=== PATIENT | male | born 1970 | race Two or more races ===

== ENCOUNTER 2017-02-02 10:43 | Emergency (ER) | payer OTHER ==
--- NOTE | 2017-02-02 11:03 | CPEKG ---
Heart Rate: 55 RR Interval: 1091 P-R Interval: 208 QRSD Interval: 88 QT Interval: 444 QTC Interval: 425 P Palmetto: 54 QRS Palmetto: 60 T Wave [place]metto: 56 EKG Severity - NORMAL ECG - EKG Impression: SINUS RHYTHM Electronically Signed By: Man Harrington 02-Feb-2017 13:55:08
[2017-02-02 11:21] LABS: % IMMATURE GRANULYOCYTES 0.2 % (0.0-1.1); ABSOLUTE IMMATURE GRANULOCYTES 0.01 10^3/uL (0.00-0.10); ADD DIFF? NO; ADD MORPH? NO; ADD SCAN? NO; ATYPICAL LYMPHOCYTE FLAG 10 (0-99); FRAGMENT RBC FLAG 0 (0-99); HEMATOCRIT 47.2 % (40.0-51.0); HEMOGLOBIN 16.3 g/dL (13.7-17.5); LEFT SHIFT FLG 0 (0-99); LIPEMIA HEMOLYSIS FLAG 90 (0-99); MEAN CELL HEMOGLOBIN 31.7 pg (27.9-34.1); MEAN CELL HEMOGLOBIN CONCENTR. 34.5 g/dL (32.4-36.7); MEAN CELL VOLUME 91.7 fL (81.5-99.8); MEAN PLATELET VOLUME 10.1 fL (8.7-11.7); PLATELET CLUMPS FLAG 10 (0-99); PLATELET COUNT 259 10^3/uL (150-400); RED BLOOD CELL COUNT 5.15 10^6/uL (4.40-6.38); RED CELL DISTRIBUTION WIDTH 12.3 % (11.5-15.2)
--- NOTE | 2017-02-02 11:33 | EDPHY ---
H & P Stated Complaint: Central Chest pain, tighness since early am, lightheaded. HPI/ROS: CHIEF COMPLAINT: Chest Pain HISTORY OF PRESENT ILLNESS: Patient awoke with some chest pain approximately 1: 30 a.m. this morning. Retrosternal chest pain that is described as mild to moderate pressure. Does not radiate. No nausea, vomiting or diaphoresis. No exertional pain. Minimally improved at this time. He does report recent cough and upper respiratory type infection over the past 2 weeks. His spouse had the similar. He has got no fever at this time. No shortness of breath. No recent travel or surgery. No previous venous thrombolic event and no current risk factors at this time. No hypertension, diabetes, coronary artery disease or reports of dyslipidemia. No other associated complaints or modifying factors. FAMILY HISTORY CARDIAC: Denies PRIOR CARDIAC WORKUP: None REVIEW OF SYSTEMS: Ten systems reviewed and are negative unless otherwise noted in the HPI EXAMINATION: General Appearance: Alert, no distress Head: normocephalic, atraumatic Eyes: Pupils equal and round, no conjunctival pallor or injection ENT, Mouth: Mucous membranes moist Neck: Normal inspection, supple, non-tender Respiratory: Lungs are clear to auscultation. No wheezing, rhonchi or crackles. Cardiovascular: Regular rate and rhythm. No murmur. Pulses intact distally Gastrointestinal: Abdomen is soft and nontender Back: non-tender, no bony abnormalities Neurological: A&O, nonfocal, normal gait Skin: Warm and dry, no rash Extremities: Nontender, no pedal edema. No evidence of DVT. Psychiatric: Mood and affect normal DIFFERENTIAL DIAGNOSES: Including but not limited to in no particular order: Acute Chest Pain, ACS, Stable Angina, Pneumonia, PE, duodenitis, gastritis, esophagitis, GERD MDM: 11:30 a.m. Chest pain that started approximately 1:30 a.m. this morning. It has been constant. [id number] pain. No worse with exertion. This is preceded by upper respiratory and lower respiratory infections over the past 2 weeks. Vital signs stable. EKG is unremarkable. Labs and chest x-ray are pending. 12:15 p.m. Chest x-ray, EKG, laboratory studies are all negative. This includes negative troponin and negative D-dimer. 12:30 p.m. I have re-evaluated the patient. He is resting comfortably. He is sitting up in a chair using his phone. I have informed him that all laboratory studies are negative. EKG is unremarkable. Chest x-ray is unremarkable. I suspect this may be pericarditis versus pleurisy. I will discharge the patient home with instructions to take anti-inflammatories for the next 7 days. Additionally we will trial him on colchicine for the next 7 days. He is also to follow up with his primary care physician. We discussed return to the emergency department precautions including any change in the pain, sweating, nausea, shortness of breath or exertional component of pain. He is comfortable with this plan and discharged home stable condition. EKG: Interpreted by Dr. Harrington Normal sinus rhythm, rate is 55 beats per minute. No ST depression or elevation. T-waves inverted only in AVR and V1. SUPERVISION: This patient was independently evaluated without direct examination by the attending physician. Case was discussed with attending physician. Case discussed with Dr. Harrington Source: Patient - Personal History Current Tetanus/Diphtheria Vaccine: Unsure Current Tetanus Diphtheria and Acellular Pertussis (TDAP): Unsure Tetanus Vaccine Date: within 10 yrs - Medical/Surgical History Hx Asthma: No Hx Chronic Respiratory Disease: No Hx Diabetes: No Hx Cardiac Disease: No Hx Renal Disease: No Hx Cirrhosis: No Hx Alcoholism: No Hx HIV/AIDS: No Hx Splenectomy or Spleen Trauma: No Other PMH: denies. - Social History Smoking Status: Never smoked Constitutional: Initial Vital Signs Temperature (C) 97.5 F 02/02/17 10:51 Heart Rate 54 L 02/02/17 10:51 Respiratory Rate 18 02/02/17 10:51 Blood Pressure 118/76 02/02/17 10:51 O2 Sat (%) 98 02/02/17 10:51 O2 Delivery Mode Room Air Allergies/Adverse Reactions: No Known Allergies Allergy (Verified 02/02/17 10:54) Home Medications: Medication Instructions Recorded Colchicine 0.6 mg PO BID #14 capsule 02/02/17 Departure - Departure Disposition: Home, Routine, Self-Care Clinical Impression: Chest pain Qualifiers: Chest pain type: unspecified Qualified Code(s): R07.9 - Chest pain, unspecified Condition: Good Instructions: Chest Pain (ED), Acute Pericarditis (ED) Additional Instructions: Medications as discussed: Ibuprofen 600 mg every 6 hours or 800 mg every 8 hours. Or Aleve twice daily. Take for 7 days and stop. Colchicine as prescribed for 7 days. Follow up with primary care physician. Return to ER for any change in symptoms as discussed Referrals: Joanna Liu [Primary Care Provider] - As per Instructions Prescriptions: Colchicine 0.6 mg PO BID #14 capsule
[2017-02-02 11:34] LABS: ANION GAP 9 mEq/L (8-16); CALCIUM 9.8 mg/dL (8.5-10.4); CARBON DIOXIDE 26 mEq/l (22-31); CHLORIDE 105 mEq/L (97-110); CREATININE 0.9 mg/dL (0.7-1.3); GLOMERULAR FILTRATION RATE > 60; GLUCOSE 86 mg/dL (70-100); POTASSIUM 4.5 mEq/L (3.5-5.2); SODIUM 140 mEq/L (134-144)
[2017-02-02 11:38] LABS: INR 1.02 (0.83-1.16); PROTIME(PATIENT) 13.3 SEC (12.0-15.0)
[2017-02-02 11:47] LABS: TROPONIN I < 0.012 ng/mL (0-0.034)
[2017-02-02 12:47] VITALS: BP 130/77; PULSE 80; RESP 14; TEMP 97.9; O2SAT 94
== END 2017-02-02 12:46 | disposition home or self-care (01) ==
DX: R07.89 Other chest pain (principal)